=== PATIENT | female | born 1970 | race American Indian/Alaskan Native ===

== ENCOUNTER 2020-11-16 09:28 | Observation (INO) | payer OTHER ==
[2020-11-16] MEDS ORDERED: ONDANSETRON 4 MG/2 ML INJ IV PRN (16:25)
[2020-11-16] MEDS ORDERED: ACETAMINOPHEN 325 MG TAB PO PRN (16:25)
[2020-11-16] MEDS ORDERED: oxyCODONE /ACETAMINOPHEN 5-325MG TAB PO PRN (16:25)
--- NOTE | 2020-11-16 16:25 | History and Physical Report ---
History of Present Illness Date of examination: 11/16/20 Date of admission: 11/16/20 Chief complaint: anemia History of present illness: Visit Type: Pre-Op CC: pre op. History of Present Illness: pt presents for pre op, Vag Hyst................................... ...................................Margie Muñoz November 16, 2020 10:20 AM Mask, Patient denies fever, cough, shortness of breath and exposure to COVID-19. All risk/benefits/alternatives were d/w pt and questions were addressed and answered. I d/w that due to her having h/o transfusion she will have bloodwork done and if the hgb is less than 7 she will need at least 2 units of blood prior to the procedure. Pt expressed understanding and has her pre op apt today. Vital Signs: Patient Profile: 49 Years Old Female LMP: 10/14/2020 Height: 65 inches Weight: 194 pounds BMI: 32.28 Temp: 98.0 degrees F BP sittin / 74 (left arm) Menstrual History: LMP (date): 10/14/2020 Current Method of Contraception: None Past History : 2 Term Births: 2 Living Children: 2 Para: 2 BUSINESS DEAN History Uterine Surgery (not C/S): negative Operations: Breast Reduction: Hospitalizations: negative Anesthesia Complications: negative Abnormal PAP: negative Uterine Anomaly: negative GARCIA Exposure: negative Infertility: negative Infection History HIV Risk Eval: no Personal hx. of genital herpes: yes Partner hx. of genital herpes: no Hx of STD: HSV Active Medications (reviewed today): Provera 10 mg tablet (medroxyprogesterone) Take 1 tablet by mouth once a day IBUPROFEN 800 MG ORAL TABLET (IBUPROFEN) 1 po q6 hr prn pain VALTREX 500 MG ORAL TABLET (VALACYCLOVIR HCL) 1 tab po bid x3days as needed Current Allergies (reviewed today): No known allergies Past Medical History: Reviewed and updated today: Anemia Past Surgical History: Reviewed history from 02/26/2018 and no changes required: Breast Reduction: Family History Summary: Reviewed history Last on 09/24/2020 and no changes required:11/16/2020 Social History: Reviewed history from 02/26/2018 and no changes required: Patient is Smoking History: Patient has never smoked. Global Professional Risk Factors: Smoked Tobacco Use: Never smoker Smokeless Tobacco Use: Never Passive Smoke Exposure: no HIV High Risk Behavior: no Exercise: yes Seatbelt Use: 100 % Review of Systems General Denies fever, chills, sweats, anorexia, fatigue, weakness, malaise, weight loss and sleep disorder. Denies nausea, vomiting, headache, swelling of legs, abdominal pain, vaginal discharge, vaginal bleeding and contractions. Complains of menorrhagia and pelvic pain. Denies vaginal discharge, incontinence, dysuria, hematuria, urinary frequency, amenorrhea, abnormal vaginal bleeding, genital sores, decreased libido, painful periods, painful sex, urinary urgency, hot flashes, vaginal dryness, vaginal itching and vaginal odor. CV Denies chest pains, palpitations, syncope, dyspnea on exertion, orthopnea, PND and peripheral edema. Resp Denies cough, dyspnea at rest, excessive sputum, hemoptysis, wheezing and pleurisy. GI Denies nausea, vomiting, diarrhea, constipation, change in bowel habits, abdominal pain, melena, hematochezia, jaundice, gas/bloating, indigestion/heartburn, dysphagia and odynophagia. Endo Denies cold intolerance, heat intolerance, polydipsia, polyphagia, polyuria and unusual weight change. Breast Denies left breast lump, right breast lump, nipple discharge, bloody discharge from nipple, breast pain, abnormal mammogram and breast enlargement. MS Denies back pain, joint pain, joint swelling, muscle cramps, muscle weakness, stiffness, arthritis, sciatica, restless legs, leg pain at night and leg pain with exertion. Derm Denies rash, itching, dryness and suspicious lesions. Neuro Denies paralysis, paresthesias, headache, seizures, tremors, vertigo, transient blindness, frequent falls, frequent headaches and difficulty walking. Psych Denies depression, anxiety, irritability and mood swings. Eyes Denies blurring, diplopia, irritation, discharge, vision loss, eye pain and photophobia. ENT Denies earache, ear discharge, tinnitus, decreased hearing, nasal congestion, nosebleeds, sore throat and hoarseness. Allergy Denies urticaria, allergic rash, hay fever and recurrent infections. Heme Denies abnormal bruising, bleeding and enlarged lymph nodes. [Labs In-House] Physical Exam Appearance: well developed, well nourished, no acute distress Other Exams Lungs: no rales, rhonchi, or wheezes Heart: S1, S2, no murmur, rub, or gallop Abdomen: soft, non-tender, no masses, bowel sounds normal Skin: no ulcers, xanthomas Extremities: normal alignment, no joint enlargement, crepitus, masses or tenderness; normal tone and strength Genitourinary Exam Comments: deferred until EUA Past History Past Medical History: other (see hpi) Past Surgical History: other (see hpi) Family/Genetic History: other (see hpi) Social history: other (see hpi) Medications and Allergies Allergies Allergy/AdvReac Type Severity Reaction Status Date / Time No Known Allergies Allergy Unverified 11/14/20 15:21 Home Medications Medication Instructions Recorded Confirmed Last Taken Type Ibuprofen [Motrin] 600 mg PO Q8H PRN 11/14/20 11/14/20 Unknown History medroxyPROGESTERone ACETATE 1 tab PO DAILY 11/14/20 11/14/20 Unknown History [Medroxyprogesterone Acetate] Review of Systems All systems: negative - Physical Exam Cardiovascular: Normal S1, Normal S2 Lungs: Positive: Clear to auscultation, Normal air movement Abdomen: Positive: normal appearance, soft. Negative: distention, tenderness, guarding Genitourinary (Female): Positive: other (deferred until EUA) Results All other labs normal. Assessment and Plan - Patient Problems (1) Fibroids Status: Acute (2) Symptomatic anemia Status: Acute Plan to address problem: -admit for transfusion -d/c home when transfusion completed if AFVSS
[2020-11-16] MEDS ORDERED: SODIUM CHLORIDE 0.9% 500 ML 500 ML IV NR (16:27)
[2020-11-17] MEDS ORDERED: SODIUM CHLORIDE 0.9% 500 ML 500 ML IV ONE (10:55)
[2020-11-17 18:02] VITALS: BP 131/71
[2020-11-17 20:31] LABS: Hematocrit 27.9 % (30.3-42.9); Hemoglobin 8.5 gm/dl (10.1-14.3)
--- NOTE | 2020-11-17 22:17 | Discharge Summary ---
Providers - Providers Date of Admission: 11/17/20 09:28 Date of discharge: 11/17/20 Attending physician: DEVANG CAMPOS Primary care physician: DEVANG CAMPOS Hospitalization Reason for admission: other (aymptomatic anemia) Procedure: other (blood transfusion) Discharge diagnosis: other (anemia) Hospital course: Pt presented for admission for transfusion in preparation for vaginal hysterectomy next week. Also had some fatigue and weakness. Pt s/p 2 units of blood that was not complicated. She did feel better after the units and states that her symptoms had resolved. Pt will be d/c home with f/u in 3 days for LAVH with BS. Condition at discharge: Good Disposition: 01 HOME / SELF CARE / HOMELESS - Discharge Diagnoses (1) Fibroids Status: Acute (2) Symptomatic anemia Status: Acute Plan - Provider Discharge Summary Additional instructions: [] Smoking cessation referral if applicable(refer to patient education folder for contact #) [] Refer to [facility]'s [facility] Booklet Call your doctor immediately for: * Fever > 100.5 * Heavy vaginal bleeding ( >1 pad per hour) * Severe persistent headache * Shortness of breath * Reddened, hot, painful area to leg or breast * Drainage or odor from incision. * Keep incision clean and dry at all times and follow doctor's instructions regarding bathing/showering - Follow up plan Follow up: DEVANG CAMPOS MD [Primary Care Provider] - 7 Days Forms: [facility] Discharge Summary
== END 2020-11-17 21:15 | disposition home or self-care (01) ==
LOC: OB 09:28 → UNDOADMOB 16:00 → 3A 16:00 → OB 11-17 09:28 → UNDOADMOB 11-17 09:28 → UNDODISOB 11-17 21:15
PROVIDERS: ADMIT Obstetrics & Gynecology; ATTEND Obstetrics & Gynecology
DX: D64.9 Anemia, unspecified (principal); D25.9 Leiomyoma of uterus, unspecified
CPT/HCPCS: 36415; 36430; 85014; 85018; 86850; 86900; 86901; 86920; 96360; 96361; G0378; G0379; J7040; P9016

== ENCOUNTER 2020-11-20 08:44 | Observation (INO) | payer OTHER ==
[2020-11-16 12:39] LABS: Basophils # (Auto) 0.1 K/mm3 (0.0-0.1); Basophils % (Auto) 1.3 % (0.0-1.8); Eosinophils # (Auto) 0.3 K/mm3 (0.0-0.4); Eosinophils % (Auto) 4.2 % (0.0-4.3); Hematocrit 20.5 % (30.3-42.9); Hemoglobin 6.1 gm/dl (10.1-14.3); Lymphocytes # (Auto) 1.9 K/mm3 (1.2-5.4); Lymphocytes % (Auto) 27.9 % (13.4-35.0); Mean Corpuscular HGB Conc 30 % (30-34); Monocytes # (Auto) 0.6 K/mm3 (0.0-0.8); Monocytes % (Auto) 9.3 % (0.0-7.3); Red Cell Distribution Width 18.6 % (13.2-15.2)
[2020-11-16 12:45] LABS: Mean Corpuscular Volume 57 fl (79-97)
--- NOTE | 2020-11-16 12:49 | Anesthesia Consultation ---
Anesthesia Consult and Med Hx Date of service: 11/20/20 - Airway Anesthetic Teeth Evaluation: Good ROM Head & Neck: Adequate Mental/Hyoid Distance: Adequate Mallampati Class: Class II Intubation Access Assessment: Good - Pulmonary Exam CTA: Yes - Cardiac Exam Cardiac Exam: No Murmur - Pre-Operative Health Status ASA Pre-Surgery Classification: ASA2 Proposed Anesthetic Plan: General - Central Nervous System Hx Psychiatric Problems: No - Hematic Hx Anemia: Yes - Other Systems Hx Alcohol Use: Yes (Occas) Hx Cancer: No Hx Obesity: Yes
[2020-11-16 12:59] LABS: Blood Urea Nitrogen 10 mg/dL (7-17); Calcium 9.1 mg/dL (8.4-10.2); Hemolysis Index 12
[2020-11-16 13:03] LABS: BUN/Creatinine Ratio 20
[2020-11-16 19:06] LABS: Platelet Count 180 K/mm3 (140-440)
[~2020-11-20 08:44] MED LIST: MIDAZOLAM 2 MG/2 ML INJ IV NR; ceFAZolin/Water 2 GM/20 ML 2 GM/20 ML SYRINGE IV SCH
[2020-11-20] MEDS ORDERED: LACTATED RINGERS 0 ML ONE (08:55)
--- NOTE | 2020-11-20 09:21 | Anesthesia Day of Surgery ---
Anesthesia Day of Surgery - Day of Surgery Patient Examined: Yes Patient H&P Reviewed: Yes Patient is NPO: Yes
[2020-11-20] MEDS ORDERED: SODIUM CHLORIDE 0.9% 1000 ML 1,000 ML ONE ×2 (09:27→15:53)
[2020-11-20] MEDS ORDERED: ONDANSETRON 4 MG/2 ML INJ IV PRN (09:30)
[2020-11-20] MEDS ORDERED: HYDROmorphone 1 MG/1 ML INJ IV PRN ×2 (09:30→19:45)
[2020-11-20] MEDS ORDERED: MAGNESIUM OXIDE 400 MG TAB PO SCH (09:30)
[2020-11-20] MEDS ORDERED: ACETAMINOPHEN 500 MG TAB PO SCH (09:30)
[2020-11-20] MEDS: SODIUM CHLORIDE 0.9% 1000 ML 1,000 ML IV SCH (09:45)
[2020-11-20] MEDS ORDERED: CELECOXIB 200 MG CAP PO NR (10:00)
[2020-11-20] MEDS ORDERED: propofoL 200 MG/20 ML VIAL IV ONE (11:06)
[2020-11-20] MEDS ORDERED: LIDOCAINE MPF (2%) 20 MG/1 ML VIAL 5 ML ONE (11:06)
[2020-11-20] MEDS ORDERED: ROCURONIUM 50 MG/5 ML INJ IV ONE ×3 (11:06→15:53)
[2020-11-20] MEDS ORDERED: HYDROmorphone 1 MG/1 ML INJ ONE (11:06)
[2020-11-20] MEDS ORDERED: ceFAZolin/Water 2 GM/20 ML 2 GM/20 ML SYRINGE IV ONE (11:25)
[2020-11-20] MEDS ORDERED: SODIUM CHLORIDE 0.9% 500 ML 500 ML IV NR ×2 (11:38→15:17)
[2020-11-20] MEDS ORDERED: BUPIVACAINE/PF (0.5%) 5 MG/1 ML 30 ML VIAL INFILTRATI ONE ×2 (12:16→13:49)
[2020-11-20] MEDS ORDERED: FAMOTIDINE 20 MG TAB PO NR (12:30)
[2020-11-20] MEDS ORDERED: dexAMETHasone 20 MG/5 ML VIAL ONE (12:55)
[2020-11-20] MEDS ORDERED: SODIUM CHLORIDE 0.9% 1000 ML 1,000 ML IV SCH (13:00)
[2020-11-20] MEDS ORDERED: LACTATED RINGERS 1,000 ML ONE ×2 (13:25→14:59)
[2020-11-20] MEDS ORDERED: fentaNYL 100 MCG/2 ML INJ ONE ×3 (13:26→17:40)
[2020-11-20] MEDS ORDERED: VASOPRESSIN 20 UNIT/1 ML INJ ONE (13:45)
[2020-11-20] MEDS ORDERED: SODIUM CHLORIDE 0.9% 100 ML ONE (13:45)
[2020-11-20] MEDS ORDERED: VASOPRESSIN 20 UNIT/1 ML INJ IM ONE (13:48)
[2020-11-20] MEDS ORDERED: SODIUM CHLORIDE 0.9% IRR 1,500 ML BOTTLE IR ONE (13:49)
[2020-11-20] MEDS ORDERED: SODIUM CHLORIDE 0.9% 100 ML IVPB IV ONE (13:49)
[2020-11-20] MEDS ORDERED: METHYLENE BLUE 50 MG/10 ML AMP ONE (14:27)
[2020-11-20] MEDS ORDERED: METHYLENE BLUE 50 MG/10 ML AMP IRRIGATION ONE (14:30)
[2020-11-20] MEDS ORDERED: NEOSTIGMINE 10MG/10 ML INJ MDV ONE (16:09)
[2020-11-20] MEDS ORDERED: GLYCOPYRROLATE 0.4 MG/2 ML INJ ONE (16:09)
--- NOTE | 2020-11-20 16:25 | Operative Report ---
Operative Report Operative Report: Date of procedure:10/20/2020 Pre-operative diagnosis: Menorrhagia Symptomatic anemia Dysmenorrhea Post-operative diagnosis: Same plus retrograde filling of the bladder with methylene blue Procedure name(s): Laparoscopic assisted vaginal hysterectomy Bilateral salpingectomy Surgeon: Jania Bowman MD Electric Dolly Operator: Dr. Juanita Dumont Anesthesia: General EBL: 800 mL Urine output: 350 mL of clear urine out at end of the procedure Fluids: 2400 mL Findings: Enlarged uterus. Grossly normal fallopian tubes and ovaries bilaterally Indications: Patient with a long history of the above-stated symptoms with failed medical therapy desired definitive treatment. All risk benefits and alternatives were discussed with the patient. Consents were signed and placed on the chart. Procedure: Patient was taken to the operating room where she was placed under general endotracheal anesthesia. She was then prepped and draped in sterile fashion. It was at this point that the large Owingo uterine manipulator was placed inside of the uterus after the uterus was sounded to approximately 14 cm. Ortiz catheter was also placed at this time. Attention was then turned to the umbilicus in which a supraumbilical incision was made. Under direct visualization the 5 mm trocar was placed inside the peritoneum the peritoneum was then insufflated. As at this point that the laparoscopic portion of the procedure was performed. The fallopian tubes were isolated bilaterally cauterized and transected handed off for pathology. 2 lateral 5 mm ports were also placed under direct visualization. Using the tripolar instrument the upper pedicles were cauterized and transected to the including round ligament with e xcellent hemostasis noted bilaterally. Attention was then turned vaginally. A weighted speculum was placed into the vagina and the cervix was grasped with a single-tooth tenaculum 2. The cervix was then injected circumferentially with Pitressin. The cervix was then circumferentially incised with the scalpel and the bladder dissected off of the pubovesical cervical fascia anteriorly with a sponge stick and Metzenbaum scissors. The same procedure was performed posteriorly and the posterior cul-de-sac was entered into sharply without difficulty. At this point a Tamiko Clamp was placed over the uterosacral ligaments on either side. It was at this point that patient underwent retrograde filling of the bladder with approximately 160 cc of fluid there was no methylene blue dye that was noted in the pelvis or in the vagina after filling of the bladder. These were then transected and suture ligated with 0 Vicryl. Hemostasis was assured. The cardinal ligaments were then clamped on both sides transected and suture ligated in similar fashion. The uterine arteries were then serially clamped with Tamiko clamps transected and suture ligated on both sides. Excellent hemostasis was visualized. After it was clear that the uterus had been completely from all pedicles the uterus was removed vaginally intact with cervix intact. The vaginal cuff angles were closed with figure of 8 stitches of 0 Vicryl on both sides. The peritoneum was incorporated in the stitching of the vaginal cuff. A series of interrupted figure of 8 sutures using 0 Vicryl were used to close the entire vaginal cuff. Excellent hemostasis was noted. The vagina was then irrigated copiously. Attention was then turned laparoscopically at which time. Again all pedicles were noted to be hemostatic. The ureters were identified bilaterally with peristalsis noted bilaterally. All instruments were then removed from the abdomen and the vagina. All gas was released from the abdomen. The abdominal incisions were closed using 4-0 Monocryl. All of the abdominal incisions were injected with Marcaine without epi. Patient tolerated the procedure well sponge lap and needle counts were all correct 3 the patient was taken to the recovery room awake and in stable condition.
[2020-11-20] MEDS ORDERED: ACETAMINOPHEN 325 MG TAB PO PRN (16:26)
[2020-11-20] MEDS ORDERED: HYDROcodone/ACETAMINOPHEN 5-325 MG TAB PO PRN (16:26)
[2020-11-20] MEDS ORDERED: ONDANSETRON 4 MG/2 ML INJ ONE (16:44)
[2020-11-20] MEDS ORDERED: KETOROLAC 30 MG/1 ML INJ ONE (16:44)
[2020-11-20] MEDS: HYDROmorphone 1 MG/1 ML INJ IV PRN ×4 (16:52→17:30)
[2020-11-20] MEDS ORDERED: fentaNYL 100 MCG/2 ML INJ IV ONE (17:40)
[2020-11-20] MEDS ORDERED: hydrALAZINE 20 MG/1 ML INJ ONE (18:22)
[2020-11-20] MEDS ORDERED: hydrALAZINE 20 MG/1 ML INJ IV ONE (18:23)
[2020-11-20] MEDS: ceFAZolin/NS 1 GM/50 ML 1 GM/50 ML BAG IV SCH (20:24)
--- NOTE | 2020-11-20 20:41 | Post Operative Note ---
Pre-op diagnosis: anemia, menorrhagia, dsymenorrhea Post-op diagnosis: same Findings: enlarged uterus about 14wks size grossly normal ovaries bilaterally evidence of adenomyosis Procedure: EDDIE UPTON Anesthesia: [place] Surgeon: DEVANG CAMPOS Behavioral Health Associate: KENJI LYLES Estimated blood loss: other (850ml) Pathology: none (uterus, cervix. left and right fallopian tubes) Specimen disposition: to lab Condition: stable Disposition: floor (mother/baby)
[2020-11-21] MEDS: KETOROLAC 30 MG/1 ML INJ IV PRN ×2 (02:09→08:42)
[2020-11-21 04:03] LABS: Hemoglobin 9.2 gm/dl (10.1-14.3)
[2020-11-21] MEDS: ceFAZolin/NS 1 GM/50 ML 1 GM/50 ML BAG IV SCH (04:03)
[2020-11-21] MEDS: SODIUM CHLORIDE 0.9% 1000 ML 1,000 ML IV SCH (04:05)
[2020-11-21] MEDS ORDERED: IBUPROFEN 800 MG TAB PO PRN (08:00)
--- NOTE | 2020-11-21 12:59 | Progress Note ---
Assessment and Plan - Patient Problems (1) S/P laparoscopic assisted vaginal hysterectomy (LAVH) Current Visit: Yes Status: Acute (2) Fibroids Current Visit: No Status: Acute (3) Symptomatic anemia Current Visit: No Status: Acute Plan to address problem: -s/p two units post op and doing well. She is w/o sx at this time. Will con't po iron upon d/c home Subjective - Subjective Date of service: 11/21/20 Principal diagnosis: POD#1 s/p LAVH with BS Interval history: Pt doing well in good spirits laying in bed. She has tolerated breakfast and lunch with a regular diet and is ready to go home. Findings from the procedure d/w pt and her . All questions were addressed and answered. Patient reports: appetite normal, voiding normally, pain well controlled, flatus , ambulating normally, no dizzy ambulation Objective - Vital Signs Latest vital signs: Vital Signs Temp Pulse Resp BP BP Pulse Ox 11/21/20 12:09 16 11/21/20 09:36 100 11/21/20 08:50 97.9 F 85 20 133/62 11/21/20 08:42 16 11/21/20 02:00 98.6 F 75 20 129/66 97 11/20/20 20:35 98.4 F 73 20 130/56 100 11/20/20 19:15 97.6 F 75 20 148/69 100 11/20/20 19:05 100 11/20/20 18:45 72 14 146/64 99 11/20/20 18:30 97.8 F 70 12 146/79 99 11/20/20 18:26 65 152/75 11/20/20 18:15 71 12 144/81 100 11/20/20 18:00 67 20 158/86 100 11/20/20 17:55 82 163/81 11/20/20 17:47 14 11/20/20 17:45 81 12 163/81 99 11/20/20 17:32 14 11/20/20 17:30 97.5 F L 79 12 173/84 99 11/20/20 17:22 16 11/20/20 17:17 16 11/20/20 17:15 78 20 162/92 100 11/20/20 17:02 16 11/20/20 17:00 79 12 167/92 100 11/20/20 16:52 20 11/20/20 16:45 79 15 159/87 100 11/20/20 16:40 101 H 16 157/84 100 11/20/20 16:35 102 H 16 153/83 100 11/20/20 16:31 97.1 F L 108 H 16 141/72 100 Intake and Output 11/20/20 11/21/20 11/21/20 22:59 06:59 14:59 Intake Total 1250 120 Output Total 200 1800 Balance 1050 -1800 120 Intake: IV 1050 ANCEF/NS 1 GM/50 ML 1 gm 50 In 50 ml @ 100 mls/hr IV Q8H MARISOL Rx#:[id number] NaCl 0.9% 1000 ml 1,000 1000 ml @ 125 mls/hr IV DIRECT MARISOL Rx#:[id number] Oral 120 Blood Product 200 Output: Urine 200 1800 Indwelling Catheter 1350 Uretheral (Ortiz) 450 Other: Total, Intake Amount 120 Total, Output Amount 450 Voiding Method Indwelling Catheter Weight 87.997 kg - Exam Breasts: Present: deferred Cardiovascular: Present: Normal S1, Normal S2 Lungs: Present: Clear to auscultation, Normal air movement Abdomen: Present: normal appearance, soft, normal bowel sounds. Absent: distention, tenderness, guarding Extremities: Present: normal. Absent: tenderness, edema Deep Tendon Reflex Grade: Normal +2 Incision: Present: normal, intact - Labs Labs: Abnormal lab results 11/20/20 11/21/20 Range/Units 09:15 03:38 Hgb 9.2 L (10.1-14.3) gm/dl Hct 30.0 L (30.3-42.9) % Crossmatch See Detail
--- NOTE | 2020-11-21 13:00 | Discharge Summary ---
Providers - Providers Date of Admission: 11/20/20 16:26 Date of discharge: 11/21/20 Attending physician: DEVANG CAMPOS Primary care physician: WOODEN FRAME BUILDER Hospitalization Reason for admission: other ([facility] WITH BS) Procedure details: SEE OP NOTE Incision: normal, dry, intact Discharge diagnosis: other (S[facility]P [facility]) Hospital course: Pt admitted for aove stated procedure due to meonrrhagia, symptomatic anemia, and dysmenorrhea. Procedure was complicated by anemia for which she was treated with 2 xfusion of PRBC both before and after surgery for a toal of 4 units of PRBC. She is doing well today w/o symptoms and desires to be d/c home. Condition at discharge: Good Disposition: 01 HOME / SELF CARE / HOMELESS Plan - Discharge Medications Prescriptions: Docusate Sodium [Colace] 100 mg PO BID PRN #60 capsule PRN Reason: Constipation Ferrous Sulfate [Feosol 325 MG tab] 325 mg PO QDAY #60 tablet Ibuprofen [Motrin 800 MG tab] 800 mg PO Q8HR PRN #30 tablet PRN Reason: Pain, Moderate (4-6) oxyCODONE /ACETAMINOPHEN [Percocet 5/325] 1 tab PO Q4HR #30 tab - Provider Discharge Summary Activity: routine, no sex for 6 weeks, no heavy lifting 4 weeks Diet: routine Instructions: routine Additional instructions: [] Smoking cessation referral if applicable(refer to patient education folder for contact #) [] Refer to [facility] Booklet Call your doctor immediately for: * Fever > 100.5 * Heavy vaginal bleeding ( >1 pad per hour) * Severe persistent headache * Shortness of breath * Reddened, hot, painful area to leg or breast * Drainage or odor from incision. * Keep incision clean and dry at all times and follow doctor's instructions regarding bathing/showering - Follow up plan Follow up: PRIMARY CARE, [Primary Care Provider] - 7 Days Forms: [facility] Discharge Summary
--- NOTE | 2020-11-21 14:24 | Post Anesthesia Evaluation ---
- Post Anesthesia Evaluation Patient Participated: Yes Airway Patent: Yes Stable Respiratory Function: Yes Nausea/Vomiting: No Temp > 96.8F: Yes Pain Manageable: Yes Adequeate Hydration: Yes Anesthesia Complications: No Block Receding Appropriately: Not Applicable Patient on Ventilator: No
[2020-11-21 18:31] VITALS: BP 134/54
== END 2020-11-21 14:25 | disposition home or self-care (01) ==
LOC: OR 08:44 → OB 16:26
PROVIDERS: ADMIT Obstetrics & Gynecology; ATTEND Obstetrics & Gynecology
DX: N92.0 Excessive and frequent menstruation with regular cycle (principal); D64.9 Anemia, unspecified; D25.9 Leiomyoma of uterus, unspecified; N94.6 Dysmenorrhea, unspecified
CPT/HCPCS: 36415; 58554; 80048; 84703; 85014; 85018; 85025; 86850; 86900; 86901; 86920; 88302; 88305; 88307; 96361; 96365; 96366; 96375; 96376; G0378; J0360; J0690; J1100; J1170; J1885; J2250; J2405; J2704; J2710; J3010; J7030; J7120; P9016; Q9968